=== PATIENT | female | born 1995 | race Caucasian/White ===

== ENCOUNTER 2017-01-04 19:33 | Outpatient (CLI) | payer OTHER | END 2017-01-04 19:34 | disposition EMS.NT | DX: R42 Dizziness and giddiness (principal) ==

== ENCOUNTER 2017-01-05 00:34 | Emergency (ER) | payer OTHER ==
[2017-01-05] MEDS ORDERED: LORazepam 0.5 MG TABLET PO STA (04:34)
[2017-01-05] MEDS ORDERED: LORazepam 0.5 MG TABLET ONE (04:36)
== END 2017-01-05 05:42 | disposition home or self-care (01) ==
DX: F41.0 Panic disorder [episodic paroxysmal anxiety] (principal)
CPT/HCPCS: 99283; A9270